=== PATIENT | male | born 1980 | race African-American/Black ===

== ENCOUNTER 2018-10-27 03:08 | Emergency (ER) | payer MEDICAID ==
[~2018-10-27] VITALS: Ht 180.3 cm; Wt 91.0 kg
[~2018-10-27 03:08] MED LIST: AMOXICILLIN500 MG PO; BUSPAR5 M1 OR; CELEXA40 MG PO; LORTAB5 PO; MIRTAZAPINE7.5 MG PO; TRAZODONE100 MG PO; ULTRAM50 M1 PO
[2018-10-27] MEDS ORDERED: MOTRIN800 MG PO (03:39)
[2018-10-27] MEDS ORDERED: AMOXICILLIN500 MG PO (03:39)
[2018-10-27 03:50] VITALS: BP 145/100
== END 2018-10-27 03:50 | disposition home or self-care (01) ==
LOC: ED 03:08
DX: K02.9 Dental caries, unspecified (principal); F17.210 Nicotine dependence, cigarettes, uncomplicated; K08.89 Other specified disorders of teeth and supporting structures

== ENCOUNTER 2019-10-12 | Emergency (ER) | payer MEDICAID ==
[~2019-10-12] MED LIST changes: +MEDDOSEPAK PO; +MOTRIN800 MG PO; +NORCO1 TA2 PO
[2019-10-12] MEDS ORDERED: BACLOFEN10 MG PO (11:48)
[2019-10-12] MEDS ORDERED: CYMBALTA20 MG PO (11:49)
[2019-10-12] MEDS ORDERED: DICLOFENAC SODI75 MG PO (11:50)
[2019-10-12] MEDS ORDERED: DICLOFENAC50 MG PO (11:58)
== END 2019-10-12 12:48 | disposition home or self-care (01) ==
DX: M62.838 Other muscle spasm (principal); F17.210 Nicotine dependence, cigarettes, uncomplicated

== ENCOUNTER 2019-10-20 | Emergency (ER) | payer MEDICAID ==
[~2019-10-20] MED LIST changes: +BACLOFEN10 MG PO; +CYMBALTA20 MG PO; +DICLOFENAC SODI75 MG PO; +DICLOFENAC50 MG PO
[2019-10-20] MEDS ORDERED: CYCLOBENZAPR5 MG PO (18:16)
== END 2019-10-20 18:23 | disposition home or self-care (01) ==
DX: S16.1XXA Strain of muscle, fascia and tendon at neck level, initial encounter (principal); F17.200 Nicotine dependence, unspecified, uncomplicated; X58.XXXA Exposure to other specified factors, initial encounter

== ENCOUNTER 2021-02-15 09:11 | Emergency (ER) | payer MEDICAID ==
[~2021-02-15] VITALS: Ht 180.3 cm; Wt 86.0 kg
[~2021-02-15 09:11] MED LIST changes: +CYCLOBENZAPR5 MG PO
[2021-02-15] MEDS ORDERED: ZPAK PO ×2 (09:26→09:36)
[2021-02-15] MEDS ORDERED: ALLERGY RELF10 M3 PO ×2 (09:26→09:36)
[2021-02-15 09:35] VITALS: BP 135/82
== END 2021-02-15 09:40 | disposition home or self-care (01) ==
LOC: ED 09:11
DX: T78.40XA Allergy, unspecified, initial encounter (principal); F32.9 Major depressive disorder, single episode, unspecified; F17.200 Nicotine dependence, unspecified, uncomplicated; X58.XXXA Exposure to other specified factors, initial encounter